=== PATIENT | male | born 1985 | race Caucasian/White ===

== ENCOUNTER → 2017-09-04 | Outpatient (CLI) | payer BC ==
[~2017-09-04] MED LIST: OMEGA 31000 MG PO; PHENERGAN 25 TA25 MG; VITAMIN D2000 I1 PO; ZOFRAN 4MG T4 MG/TAB PO
== END ==
LOC: COL.RAD 12:34
DX: N46.9 Male infertility, unspecified (principal)

== ENCOUNTER 2023-04-12 09:15 | Outpatient (RCR) | payer BC ==
[~2023-04-12 09:15] MED LIST changes: +CELEXA 20MG20 MG/TAB PO; +NORCO 325 MG-51 TAB PO
== END 2023-05-06 | disposition home or self-care (01) ==
LOC: MKS.ESL.PT
DX: M25.511 Pain in right shoulder (principal); Z98.890 Other specified postprocedural states